=== PATIENT | male | born 2000 | race Caucasian/White ===

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

== ENCOUNTER 2020-01-05 09:09 | Emergency (ER) | payer OTHER, SELFPAY ==
[2019-12-04 13:49] VITALS: BMI 34.0
[2020-01-05 09:10] VITALS: BP 134/88; PULSE 71; RESP 17; TEMP 36.6; O2SAT 96; BMI 34.9
--- NOTE | 2020-01-05 09:28 | ED.VIS.GEN ---
History of Present Illness Chief Complaint: Nausea/Vomiting/Diarrhea Informant: Patient Narrative: Patient is a 19-year-old previously healthy male who presents to the ED for nausea/vomiting and diarrhea. His symptoms have been present over the past week. Denies anybody with similar symptoms. He states that is been having loose stools every hour to 2 hours. He has been vomiting in the morning and sometimes at night. Has any blood or black tarry stools. He gets some epigastric abdominal pain when vomiting but otherwise no significant pain. He did follow-up with his PCP for this. He was placed on medication and has been taking this. He is not sure the name of the medication. He states that it is for an ulcer. He has never had this before in the past. Denies any fevers but has had some chills. Chest pain or shortness of breath. No radiation of pain into his back. States that he feels like he has been starting to get lightheaded and feels dehydrated/not well. He denies any recent travel or antibiotic use. No previous abdominal surgeries. Currently denies having abdominal pain at this time. Past Medical History - Allergies and Home Meds Allergies/Adverse Reactions: Allergies shellfish derived Allergy (Verified 01/05/20 09:10) Itching Primary Care Physician: Maria Elena King MD [Primary Care Provider] - 3-5 Days if not improving Prior records reviewed: Yes Past Medical History: None Surgical History: no surgical history Smoking Status: Current every day smoker Alcohol: None Drugs: None Review of Systems All systems negative except as indicated General: Reports: Chills. Denies: Fever, Sweats Eyes: Denies: Visual changes - bilaterally, Diplopia ENT: Denies: Rhinorrhea, Sore throat Cardiovascular: Denies: Chest pain, Palpitations Respiratory: Denies: Dyspnea, Cough, Dyspnea on exertion Gastrointestinal: Reports: Nausea, Vomiting, Diarrhea. Denies: Abdominal pain, Melena, Hematochezia Genitourinary: Denies: Dysuria, Hematuria, Frequency Musculoskeletal: Denies: Back pain, Extremity Pain Skin: Denies: Rash, Wounds Neurological: Denies: Headache, Weakness, Numbness Physical Exam Vital Signs/Narrative: Vital Signs Temp Pulse Resp BP Pulse Ox 01/05/20 09:10 97.8 F 71 17 134/88 H 96 Inital Vital Signs reviewed: Yes General: Well nourished, Well developed, No Acute Distress Head: Normocephalic, Atraumatic Eyes: Perrl, EOMI ENT: Moist mucous membranes, No rhinorrhea Neck: Supple, Nontender Cardiovascular: Regular rate, Regular rhythm, No murmurs Respiratory: No distress, CTA bilaterally, Chest nontender Abdomen: Soft, Nontender, Nondistended, Normal bowel sounds Back: Nontender, Normal Inspection Extremities: Nontender, No edema Skin: Normal color, No rash Neurological: Alert, Oriented x3, Cranial nerves II-XII grossly intact, Normal Strength, Normal Sensation Psychological: Normal affect, Normal Mood Diagnostic/Tx/Re-eval - Medical Decision Making Patient presents to the emergency department for nausea/vomiting/diarrhea. Upon arrival to the ED is in no acute distress. Vital signs within normal limits. Will start IV fluids and give a dose of Zofran for symptomatic treatment. Will obtain basic lab work. No indication for CT scan at this time as he is not having any abdominal pain whatsoever. Patient is feeling slightly better after Zofran and IV fluids. Does feel comfortable going home. Lab work did not reveal any significant acute abnormality with electrolytes. White blood cell count within normal limits. Liver enzymes are not elevated. Lipase within normal limits. At this time will discharge home in stable condition. He is to follow-up with his PCP. Patient given diet recommendations for the vomiting and diarrhea. He already has Zofran, omeprazole and Carafate prescribed to him he can continue to take this. He understands and is agreeable with this plan. ED Disposition - Plan for ED Patient: Disposition: Home or Assisted Living Diagnosis: Nausea and vomiting, Diarrhea Instructions: ED Viral Gastroenteritis, ED Vomiting and Diarrhea Nonspecific Adult Referrals: Maria Elena King MD [Primary Care Provider] - 3-5 Days if not improving
[2020-01-05] MEDS: Ondansetron 4 MG/2 ML Vial IV (09:46)
[2020-01-05] MEDS: 0.9% Normal Saline 1,000 ML 1000 ML IV (09:46)
[2020-01-05 09:47] VITALS: BP 119/61; PULSE 65; RESP 1; TEMP 36.7; O2SAT 98
[2020-01-05 09:58] LABS: Absolute Lymphocyte Count 1.52 X10^3/uL (0.83-4.51); Absolute Neutrophil Count 5.9 X10^3/uL (2.0-7.7); Basophil# 0.05 X10^3/uL; Basophil% 0.6 % (0-1); Eosinophil# 0.08 X10^3/uL; Hematocrit 46.5 % (40-54); Hemoglobin 15.3 g/dL (13.0-16.5); Lymphocyte # 1.52 X10^3/ul (4.0); Lymphocyte % 18.7 % (19-41); Mean Corp Hgb Conc 32.9 g/dL (32-36); Mean Corpuscular Hgb 29.4 pg (27.0-32.0); Mean Corpuscular Volume 89.3 fL (80-94); Monocyte# 0.54 X10^3/uL; Monocyte% 6.6 % (0-10); NRBC Flagged by Analyzer 0 % (0-5); Neutrophil # 5.92 X10^3/uL (2.7-7.7); Neutrophil % 72.7 % (47-70); Platelet Count 356 K/mm3 (150-450); RBC Distribution Width CV 11.9 % (11.6-14.6); RBC Distribution Width SD 38.5 fl (35.1-43.9); Red Blood Count 5.21 M/mm3 (4.6-6.2); White Blood Count 8.1 K/mm3 (4.4-11.0)
[2020-01-05 10:12] LABS: ALB/GLOB Ratio 1.2 RATIO (0.9-2.4); AST(SGOT) 14 U/L (15-37); Alanine Aminotransfer ALT/SGPT 24 U/L (16-61); Albumin, Serum 4.4 g/dL (3.2-5.0); Alkaline Phosphatase 101 U/L (45-117); Anion Gap 4 (5-15); BUN 10 mg/dL (7-18); BUN/Creat Ratio 8.5 RATIO (10-20); Calcium,Total 9.7 mg/dL (8.5-10.1); Chloride 107 mmol/L (98-107); Creatinine, Serum 1.17 mg/dL (0.70-1.30); EST Glomerular Filtration Rate 85 mL/min (>60); Est Glom Filt Rate - Afr Amer 103 mL/min (>60); Estimated Creatinine Clearance 114.77 ml/min; Globulin 3.7 g/dL (2.2-4.2); Glucose 87 mg/dL (74-106); Lipase 67 U/L (73-393); Potassium 3.9 mmol/L (3.5-5.1); Protein, Total 8.1 g/dL (6.4-8.2); Sodium Level 140 mmol/L (136-145)
[2020-01-05] MEDS: proMETHazine 25 MG/ML Syringe 12.5 MG IV (11:24)
[2020-01-05 11:28] VITALS: BP 118/53; PULSE 79; RESP 18; O2SAT 97
[2020-01-05 11:37] VITALS: BP 118/53; PULSE 79; RESP 18; TEMP 36.7; O2SAT 97
== END 2020-01-05 11:38 | disposition home or self-care (01) ==
PROVIDERS: Emergency Provider Emergency Medicine; PCP Pediatrics
DX: R11.2 Nausea with vomiting, unspecified (principal); R19.7 Diarrhea, unspecified; F17.200 Nicotine dependence, unspecified, uncomplicated
CPT/HCPCS: 80053; 83690; 85025; 96361; 96372; 96374; 96375; 99284; J7030; A4216; J2405

== ENCOUNTER → 2021-01-29 | Outpatient (CLI) | payer OTHER, SELFPAY | END | disposition home or self-care (01) | LOC: LABSPEC 12:51 | PROVIDERS: PCP Pediatrics; Referring Provider Physician Assistant Surgical; Visit Provider Physician Assistant Surgical | DX: J02.9 Acute pharyngitis, unspecified (principal) | CPT/HCPCS: 87635; U0005; U0003 ==

== ENCOUNTER 2021-06-22 14:25 | Outpatient (CLI) | payer OTHER, SELFPAY ==
[2021-06-22 14:26] VITALS: BP 132/84; PULSE 101; RESP 18; TEMP 36.2; O2SAT 97; BMI 31.6
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
--- NOTE | 2021-06-22 15:01 | RAD_ITS ---
History: Infection: Right tibia fibula 2 views: Findings: No fracture or subluxation. No joint or soft tissue abnormality. IMPRESSION: Intact right tibia and fibula. at 1518 Reported and signed by: Dioni Stewart MD Electronically Signed: Dioni Stewart MD at 15:17 EST , RAD/Tibia & Fibula 2 Views
[2021-06-22] MEDS: Doxycycline 100 MG CAPSULE PO (15:08)
[2021-06-22 15:25] VITALS: PULSE 98; RESP 15; O2SAT 97
--- NOTE | 2021-06-23 12:12 | VDLE_ITS ---
Reason For Study: Pain RIGHT GSV is normal. CFV is compressible, spontaneous, phasic, competent and demonstrates normal augmentation. FV is compressible, spontaneous, phasic, competent and demonstrates normal augmentation. POP V is compressible, spontaneous, phasic, competent and demonstrates normal augmentation. T/P Trunk is compressible. PTV is compressible. RT PerV is compressible. Hypoechoic, non vascular structure noted Rt mid, medial calf over area of injury/pain measuring 1.07cm x 5.67cm. Procedure This is a venous duplex using B-mode, color flow and spectral Doppler. Exam performed in department. A preliminary report was called and/or faxed to ED. VL/Venous Duplex US, Unilateral Interpretation Summary There is no evidence of right lower extremity deep vein thrombosis. Right great saphenous vein appears patent and compressible segmentally. Nonvascular right medial calf hypo echoic 1.07 x 5.67 cm structure. Clinical correlation would be appropriate. Ordering Physician: Мария Sherman Referring Physician: Maria Elena King Performed By: Padma Carson, AMBIKA, RVT
== END 2021-06-23 23:59 | disposition home or self-care (01) ==
PROVIDERS: Emergency Provider Emergency Medicine; PCP Pediatrics; Visit Provider Emergency Medicine
DX: L03.115 Cellulitis of right lower limb (principal); F17.220 Nicotine dependence, chewing tobacco, uncomplicated; F17.290 Nicotine dependence, other tobacco product, uncomplicated
CPT/HCPCS: 73590; 93971; 99283

== ENCOUNTER 2023-01-24 17:29 | Emergency (ER) | payer OTHER, SELFPAY ==
[2023-01-24 17:30] VITALS: BP 104/66; PULSE 84; RESP 14; TEMP 36.1; O2SAT 100
[2023-01-24 18:00] VITALS: BP 120/82; PULSE 74; RESP 16; O2SAT 100
[2023-01-24] MEDS: HYDROmorphone 1 MG/ML Syringe IM (18:08)
[2023-01-24] MEDS: Ondansetron 4 MG/2 ML Vial IM (18:09)
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
--- NOTE | 2023-01-24 18:58 | CONS.ORTHO ---
HPI Consult Data Date of Consult: 01/24/23 HPI Narrative HPI Narrative: CHEYANNE ABRAMS, is a 22 M who presents for right clavicle fracture. Per ED doc closed and NVI with no tenting. PFSH Medical History Asthma Right clavicle fracture Smoker Home Medications albuterol sulfate 90 mcg/actuation aerosol inhaler 2 puff inhalation Q4H PRN PRN Sob &/Or Wheezing 07/01/19 [History Last Taken Unknown] omeprazole 40 mg capsule,delayed release 40 mg PO DAILY 01/05/20 [History Last Taken 01/05/20] doxycycline monohydrate 100 mg capsule 100 mg PO BID #20 caps 06/22/21 [Rx Last Taken Unknown] Allergy/AdvReac Type Severity Reaction Status Date / Time shellfish derived Allergy Itching Verified 01/24/23 17:29 Social History Smoking Status: Current every day smoker tobacco type: e-cigarettes Smokeless tobacco user: chewing tobacco alcohol intake: never Vital Signs Vital Signs Vital Signs: 01/24/23 17:30 01/24/23 17:59 01/24/23 18:00 Temperature 97 F L Temperature Source Temporal Pulse Rate 84 74 Respiratory Rate 14 16 Respiratory Effort Normal Non-Labored Respiratory Depth Normal Respiratory Pattern Normal Blood Pressure 104/66 120/82 H Blood Pressure Mean 78 94 Pulse Ox 100 100 Oxygen Delivery Method Room Air Room Air Room Air Assessment & Plan Assessment/Plan (1) Right clavicle fracture: PLAN: 22 M R clavicle fracture, sling and FU on thursday.
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
== END 2023-01-24 19:23 | disposition home or self-care (01) ==
PROVIDERS: Emergency Provider Emergency Medicine; PCP Family Medicine; Visit Provider Emergency Medicine
DX: S42.021A Displaced fracture of shaft of right clavicle, initial encounter for closed fracture (principal); F17.290 Nicotine dependence, other tobacco product, uncomplicated; X58.XXXA Exposure to other specified factors, initial encounter
CPT/HCPCS: 73000; 96372; 99283; J2405

== ENCOUNTER 2023-01-28 10:52 | Day surgery (SDC) | payer OTHER, SELFPAY ==
[2023-01-28] VITALS (8 sets, daily range): BP systolic 107–124; BP diastolic 67–85; PULSE 63–90; RESP 12–18; TEMP 36.3–36.8; O2SAT 96–100; BMI 23.2
[2023-01-28] MEDS: Lactated Ringers 1,000 ML 15 ML IV (11:23)
--- NOTE | 2023-01-28 11:25 | RAD_ITS ---
EXAM: XR RIGHT CLAVICLE COMPLETE, 2 OR MORE VIEWS CLINICAL INDICATION: FX TECHNIQUE: Frontal and lordotic views of the right clavicle. COMPARISON: No relevant prior studies available. FINDINGS: BONES/JOINTS: Single image was obtained intraoperatively which shows orthopedic plate and screws across a clinical fracture. Preservation of the joint space. No sclerotic or destructive changes observed. SOFT TISSUES: Unremarkable. No soft tissue swelling or gas. No radiopaque foreign body. RAD/Clavicle IMPRESSION: ORIF right clavicle fracture. Electronically Signed: Herminio Powers MD at 17:09 EDT ,
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
[2023-01-28] MEDS: Cefazolin 2 GM in 0.9% Normal Saline (100mL Bag) 100 ML IV (12:30)
[2023-01-28] MEDS: Bupivacaine 0.25% 30 ML Vial (13:00)
--- NOTE | 2023-01-28 14:11 | OP.PCM_ITS ---
Problems Associated Problem List Diagnoses (1) Right clavicle fracture: Report of Operation Date of Procedure: 01/28/23 Pre-Operative Diagnosis: R clavicle fracture Post-Operative Diagnosis: same Surgery/Procedure Performed:: right clavicle open reduction internal fixation Surgeon: Saul Morales Type of Anesthesia: General and Local Anesthesiologist: Obey Ferreira Estimated Blood Loss (mL): 40 Description of Procedure: Patient brought to the operating room theater. Placed supine on the table. Pillow under the legs SCDs on the legs all bony prominences padded. General anesthesia induced. 2 g IV Ancef ministered prior to the start of the procedure. Patient sat up at a 45 degree angle. Trimano arm leary used on the patient's right side. Clavicle prepped and draped in the usual sterile fashion allowing over 3 minutes drying time prior to draping. Preoperative timeout performed to confirm the site patient and the surgery. Began by infiltrating 10 cc of quarter percent bupivacaine around the incision site. Made a standard incision centered of the superior aspect of the subcut aneous border of the clavicle. Carried dissection down through skin and subcutaneous tissue achieved meticulous hemostasis. Incised the fascia and platysma in line with the skin incision. Identified the fracture site. Dissected down onto the superior aspect of the clavicle on both sides of fracture. There is a about half an inch length of comminution into 2 fragments in the mid aspect of the clavicle. I used these to ballistics teacher the length. The most superior aspect of the clavicle was intact as well, so I could also ballistics teacher the length and schaefer this in. I removed any interposed fracture periosteum and hematoma. Thoroughly irrigated this. Used pointed reduction forceps as well as alligator clamps to manipulate the fracture back into proper alignment length and rotation. I selected a Synthes precontoured locking plate placed superiorly clamped this onto the superior aspect of the clavicle. Took intraoperative radiographs to confirm plate placement as well as fracture alignment. I used the 2.7 mm low-profile plate. I drilled using a 2.0 mm drill and placed 4 fully threaded locking screws 2.7 mm in diameter on both sides of the fracture site to increase the working length as much as possible. The comminuted segment I left this as this was bridge plating technique. Final radiographs were taken and saved onto the system to ensure the screws were of adequate length. Fracture is stable. Wounds thoroughly irrigated. I did use a #1 Vicryl suture to close the fascia overlying the area of comminution to ensure that the segment was appropriately reduced as well but this was held nicely in place by the reduction itself and the plate. Rest of the fascia layer was closed with running #1 Vicryl suture subcutaneous tissue with 2-0 Vicryl suture and skin with 3-0 Monocryl. Skin cleaned with wet dry dressing followed application of Steri-Strips and Mepilex border dressing. Patient's upper extremity placed into a sling. The patient was woken up from the general anesthetic transferred off the operating table taken postanesthetic care unit in stable condition. All sponge needle instrument counts were correct no complications. cpt 35181? Complications none Admit VTE Documentation VTE Present on Admission: No VTE Mechan Device Prophylaxis: SCD's VTE Pharm Prophylaxis ordered?: No Reason prophylaxis not ordered:: Treatment Not Indicated Procedures Musculoskeletal 20xxx-29xxx: Other Procedure See Report
--- NOTE | 2023-01-28 14:20 | DCINST_ITS ---
Discharge Instructions Diet Discharge Diet: No restrictions Activity Ice area for (Minutes): 10 Weight Bearing Status: No weight bearing Lifting Restrictions: ok for pendulum exercises Dressing / Incision Call your doctor if your incision/area has: Continuous Slow Oozing, Sudden Increased Bleeding, Increased Pain/ Swelling, Increased Redness, Foul Smelling Discharge and Swelling at the incision site Remove Dressing in: leave in place till F/U Follow Up Care Please Follow Up With: Saul Morales MD When: 2 days Test Results: Test results from this visit will be discussed in further detail at your follow- up appointment, if applicable. Discharge Plan Admission Attending Provider: Saul Morales Primary Care Provider: Garcia Sifuentes Discharge Orders/Prescriptions Prescriptions: New oxycodone-acetaminophen [Endocet] 5-325 mg tablet 1 tab PO Q4H MDD 6 PRN (Reason: pain) 5 Days Qty: 20 0RF No Action albuterol sulfate 90 mcg/actuation HFA aerosol inhaler 2 puff INHALATION Q4H PRN PRN (Reason: Sob &/Or Wheezing) Patient Comments: INHALE 2 PUFFS INTO THE LUNGS EVERY 4 HOURS NEEDED FOR WHEEZING, SHORTNESS OF BREATH OR COUGH omeprazole 40 MG capsule,delayed release(DR/EC) 40 mg PO DAILY oxycodone-acetaminophen [Endocet] 5-325 mg tablet 1 tab PO Q6H 3 Days Qty: 12 0RF Referrals / Follow Up: Garcia Sifuentes DO [Primary Care Provider] - Saul Morales MD [Med Staff - Active Staff] - Disposition Disposition (needs filled in before D/C Order can be placed): Home, Self Care
[2023-01-28] MEDS: HYDROcodone Bitartrate/Apap 5/325 Tablet PO (15:27)
== END 2023-01-28 15:54 | disposition home or self-care (01) ==
LOC: SDC 10:56 → AC 10:58
PROVIDERS: PCP Family Medicine; Referring Provider Orthopaedic Surgery Sports Medicine; Visit Provider Orthopaedic Surgery Sports Medicine
PROC: (CPT 23515; principal; 2023-01-28 12:05)
DX: S42.001A Fracture of unspecified part of right clavicle, initial encounter for closed fracture (principal); F17.290 Nicotine dependence, other tobacco product, uncomplicated; K21.9 Gastro-esophageal reflux disease without esophagitis; J45.909 Unspecified asthma, uncomplicated; Z79.899 Other long term (current) drug therapy; X58.XXXA Exposure to other specified factors, initial encounter
CPT/HCPCS: 23515; 00450; 73000; 76000; C1713; J7120; J2405

== ENCOUNTER 2024-07-16 19:57 | Emergency (ER) | payer OTHER, SELFPAY ==
[2024-07-16 19:58] VITALS: BP 139/72; PULSE 106; RESP 15; TEMP 35.8; O2SAT 99
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
[2024-07-16] MEDS: HYDROcodone Bitartrate/Apap 5/325 Tablet PO (20:24)
--- NOTE | 2024-07-16 20:30 | RAD_ITS ---
PROCEDURE: KNEE 3 VIEWS REASON FOR EXAM: Pain/trauma TECHNIQUE: 2 view(s) of the left knee COMPARISON: None. FINDINGS: Large left knee effusion detected. Fragmentation at the tibial tubercle as well as inferior patella which appear to be remote. No definite fracture detected. Derangement not excluded RAD/Knee 3 Views IMPRESSION: Large left knee effusion following trauma. No acute fracture detected. Chroni c changes seen along the inferior patella as well as tibial tubercle. If concern for derangement, consider MRI. Reading Location: [id number]
== END 2024-07-16 21:37 | disposition home or self-care (01) ==
PROVIDERS: Emergency Provider Emergency Medicine; PCP Family Medicine; Visit Provider Emergency Medicine
DX: S83.92XA Sprain of unspecified site of left knee, initial encounter (principal); R03.0 Elevated blood-pressure reading, without diagnosis of hypertension; F17.290 Nicotine dependence, other tobacco product, uncomplicated; X58.XXXA Exposure to other specified factors, initial encounter; Z79.51 Long term (current) use of inhaled steroids
CPT/HCPCS: 73562; 99284

== ENCOUNTER → 2024-08-01 | Outpatient (CLI) | payer OTHER, SELFPAY ==
--- NOTE | 2024-08-01 19:14 | MRI_ITS ---
PROCEDURE: MRI left knee without IV contrast REASON FOR EXAM: Pain TECHNIQUE: Multisequence multiplanar MR images of the left knee were obtained without the administration of intravenous contrast. COMPARISON: None. FINDINGS Medial meniscus is intact. Possible small vertical longitudinal tear at the posterior horn of the lateral meniscus near the insertion of the meniscal femoral ligament. Remaining portions of the lateral meniscus are intact. Full-thickness tear of the mid anterior cruciate ligament. Intact posterior cruciate ligament. Grade 2 sprain of the medial collateral ligament. Lateral collateral ligamentous complex is intact. Extensor mechanism is intact. Ossicles at the tibial tubercle and along the proximal patellar tendon likely related to chronic traction injuries. Near full-thickness oblique fracture along the medial patellar facet. Trochlear cartilage is intact. Medial and lateral compartment cartilage is intact. Moderate joint effusion. Pivot-shift bone marrow contusions along the peripheral aspects of the medial and lateral femoral condyles as well as the medial and lateral tibial condyles. Mild osseous contusion at the anteromedial tibial condyle also noted. Tiny nondisplaced osseous and chondral fracture at the posterior aspect of the lateral tibial plateau. Moderate scattered soft tissue edema throughout the musculature and subcutaneous tissues. MRI/Lower Ext Joint Only (Routine) IMPRESSION: 1. Ruptured anterior cruciate ligament. 2. Grade 2 sprain of the medial collateral ligament. 3. Pivot-shift bone marrow contusions in the distal femur and proximal tibia. 4. Moderate joint effusion. 5. Suspected small vertical longitudinal tear of the posterior horn of the late ral meniscus. 6. Minimal chondral abnormalities as mentioned above. Reading Location: [facility]
== END | disposition home or self-care (01) ==
LOC: MRI 14:09
PROVIDERS: PCP Family Medicine; Referring Provider Nurse Practitioner Family; Visit Provider Nurse Practitioner Family
DX: M23.92 Unspecified internal derangement of left knee (principal); S83.92XA Sprain of unspecified site of left knee, initial encounter
CPT/HCPCS: 73721

== ENCOUNTER 2024-08-24 12:14 | Day surgery (SDC) | payer OTHER, SELFPAY ==
[2024-08-24] VITALS (10 sets, daily range): BP systolic 107–120; BP diastolic 67–78; PULSE 80–103; RESP 14–18; TEMP 36.1–36.7; O2SAT 94–97; BMI 29.7
--- NOTE | 2024-08-24 12:22 | PCM.PRE.AN2 ---
ASA Classification* ASA Classification ASA Classification: 2 Assessment & Plan Anesthesia* Anesthesia Assessment Anesthesia Assessment: Discussed sedation and/or anesthesia options, risks, benefits, and alternatives with patient/parents/legal guardian/POA. Questions invited. The patient/parents/legal guardian/POA seems to understand and agrees to proceed with anesthesia plan. Reviewed the physical assessment, medical history, allergy history and patient home medications list prior to surgery/procedure/anesthetic and documented any changes. Performed airway and anesthesia risk assessments. Anesthesia Type Anesthesia Type: General and Block Anesthesia Focused Assessment* Airway Assessment Mouth opens: >3 cm Mallampati Score: II Focused Labs Anesthesia Preop lab: CBC WBC 8.1 K/mm3 (4.4-11.0) 01/05/20 09:42 01/05/20 RBC 5.21 M/mm3 (4.6-6.2) 01/05/20 09:42 01/05/20 Hgb 15.3 g/dL (13.0-16.5) 01/05/20 09:42 01/05/20 Hct 46.5 % (40-54) 01/05/20 09:42 01/05/20 Plt Count 356 K/mm3 (150-450) 01/05/20 09:42 01/05/20 CHEMISTRY Potassium 3.9 mmol/L (3.5-5.1) 01/05/20 09:42 01/05/20 Sodium 140 mmol/L (136-145) 01/05/20 09:42 01/05/20 BUN 10 mg/dL (7-18) 01/05/20 09:42 01/05/20 Creatinine 1.17 mg/dL (0.70-1.30) 01/05/20 09:42 01/05/20 Glucose 87 mg/dL (74-106) 01/05/20 09:42 01/05/20 COAG Pre-Assessment Diagnosis/Proposed Procedure Planned Operative Procedure(s): LEFT KNEE ARTHROSCOPY QUAD TENDON REPAIR ACL RECONSTRUCTION LATERAL MENISCUS REPAIR Anesthesia History 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 When Was Last Pacemaker Check QUESTION #4 FULL TEXT: You/Your Family Experience fever (hyperthermia) with Anesthesia Last Oral Intake Last Oral intake: Last Oral Intake NPO since Meds taken in AM with sips of water? Meds patient instructed to take am of surgery PONV PONV - real estate loan processor: PONV - real estate loan processor Female No 08/10/24 08:16 HX of Motion Sickness No 08/10/24 08:16 HX of N/V After Surgery No 08/10/24 08:16 Non-Smoker No 08/10/24 08:16 Duration of Surgery greater Yes 08/10/24 08:16 than 60 minutes Number of Risk Factors 1 08/10/24 08:16 PONV Score Low Risk 08/10/24 08:16 Height & Weight Height & Weight: Anesthesia: Height & Weight Height 6 ft 1 in 08/03/24 13:25 Respiratory Assessment Respiratory Assessment - real estate loan processor: Respiratory Tract Infection Hx - real estate loan processor Hx Respiratory Tract Infection No 08/10/24 08:16 STOP Sleep Apnea STOP Sleep Apnea - real estate loan processor: STOP Sleep Apnea - real estate loan processor Hx Hypertension No 08/10/24 08:16 Hx Sleep Apnea No 08/10/24 08:16 CPAP BIPAP Do you snore loudly (louder Yes 08/10/24 08:16 than talking or can be heard Do you often feel tired/ No 08/10/24 08:16 fatigued/ sleepy during daytime? Has anyone observed you stop No 08/10/24 08:16 breathing during sleep? STOP Results Negative 08/10/24 08:16 QUESTION #5 FULL TEXT : Do you snore loudly (louder than talking or can be heard through closed doors)? 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 Specify any problems Hx of Preganancy in last 3 N/A 08/10/24 08:16 Months Nurse Filling Out Transfusion DSCHRIBER 08/10/24 08:16 & Questions: Date: 08/10/24 08/10/24 08:16 Time: 08:18 08/10/24 08:16 Patient unable to answer at this time (ie. confused, unrespo /Reproduction History /Reproductive History - real estate loan processor: /Reproductive Hx- real estate loan processor Hx Now No 08/10/24 08:16 Gestational Age (in weeks): EDC: Hx Hx Para Hx Section SAB No 08/10/24 08:16 Active Medications Active Medications: Current Medications Generic Name Dose Route Start Last Admin Trade Name Freq PRN Reason Stop Dose Admin Cefazolin Sodium 2 gm/ N/A 20 mls @ 400 mls/hr 08/24/24 14:00 IV 08/24/24 14:02 PREOP ONE PFSH Medical History Anxiety Marijuana use Alcohol use Restless legs History of edema Acute lateral meniscus tear of left knee MCL sprain of left knee Left ACL tear History of ulceration Gastric reflux Right clavicle fracture Smoker Asthma Home Medications ?Medication ?Instructions ?Recorded ?Last Taken ?Type albuterol sulfate 90 mcg/actuation 2 puff inhalation Q4H PRN PRN Sob 07/01/19 Unknown History aerosol inhaler &/Or Wheezing omeprazole 40 mg capsule,delayed 40 mg PO DAILY 01/05/20 01/27/23 History release ibuprofen 800 mg tablet 800 mg PO Q8H PRN pain #90 tabs 07/22/24 Unknown Rx Allergy/AdvReac Type Severity Reaction Status Date / Time cat dander Allergy Intermediate Itching Verified 08/10/24 08:14 dog dander Allergy Intermediate Itching Verified 08/10/24 08:14 shellfish derived Allergy Itching Verified 08/10/24 08:12 Seasonal Allergies: Uncoded AdvReac Intermediate ITCHING Verified 08/10/24 08:14 (environmental) Surgical History S/P ORIF (open reduction internal fixation) fracture Social History Smoking Status: Current every day smoker tobacco type: e-cigarettes Smokeless tobacco user: chewing tobacco alcohol intake: never Review of Systems (Anesthesia) ROS Narrative System reviewed and no additional complaints, except as documented.
--- NOTE | 2024-08-24 14:06 | HP.PCM_ITS ---
HPI - General HPI Narrative CHEYANNE ABRAMS, is a 24 M who presents for left knee arthroscopy, quadriceps tendon anterior cruciate ligament reconstruction, lateral meniscus repair. no change to h and p. narcotic counselling, rab, post op instructions discussed. left knee marked. block ok. crutches and brace after. will proceed. MR#: [id number] Acct: [id number] Name: CHEYANNE ABRAMS Rep #: [id number] : 2000 Provider: Dr. Saul Morales MD Age/Sex: 24/M Location: [facility] – [place].JESIKA Status: Signed with Addenda ADDENDUM by Dr. Saul Morales MD on 08/03/24 at 1348 Assessment and Plan Assessment and Plan (1) Left ACL tear: Status: Acute Plan: I gave the patient a brace to ROM unlocked 0 to 90 degrees for the MCL sprain. (2) MCL sprain of left knee: Status: Acute (3) Acute lateral meniscus tear of left knee: Status: Acute 08/03/24 1348 <Electronically signed by Saul Morales MD> Date Saul Morales MD cc: ~* Signed Intake Vital Signs 08/02/2513:19 08/03/2512:25 Height 6 ft 1 in 6 ft 1 in Intake Visit Reasons: LEFT KNEE Chief Complaint: Left knee Accompanied by: Self Is patient in pain?: Yes (Walking) Pain scale (1-10): 7 Allergies shellfish derived Allergy (Verified 08/03/24 13:26) Itching Medications ?Medication ?Instructions ?Recorded ?Confirmed ?Type albuterol sulfate 90 mcg/actuation 2 puff inhalation Q4H PRN PRN Sob 08/03/24 History aerosol inhaler &/Or Wheezing omeprazole 40 mg capsule,delayed 40 mg PO DAILY 01/05/20 08/03/24 History release ibuprofen 800 mg tablet 800 mg PO Q8H PRN pain #90 tabs 07/22/24 08/03/24 Rx Have you fallen in the past year?: Yes PFSH Medical History Acute lateral meniscus tear of left knee MCL sprain of left knee Left ACL tear History of ulceration Gastric reflux Right clavicle fracture Smoker Asthma Surgical History S/P ORIF (open reduction internal fixation) fracture Social History Smoking Status: Current every day smoker tobacco type: e-cigarettes Smokeless tobacco user: chewing tobacco alcohol intake: never HPI LEFT KNEE Details: This documentation accurately reflects the service provided and the decisions made by me, Dr. Saul Morales MD 08/03/24 1008. Part of today?s visit was documented by [ ], acting as scribe. CHEYANNE ABRAMS is a 24 year old M here today for L knee injury, ACL, MCL, lateral meniscus tear. Patient was jumping down from a truck. [place] a pop. Immediate instability and swelling of the knee. 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 per referral doi: 07/16/24. He states that he was in the rogers of his truck cleaning and went to jump leading with his left leg, when he jumped down he lost his balance and his knee went to the side and his body went the opposite direction. When the injury occurred he did feel popping in the knee with immediate pain. Supplemental Info [facility] [address] [place] [address] Lower Ext Joint Only (Routine) MR#: [id number] Acct: [id number] Name: CHEYANNE ABRAMS Rep #: [id number] : 2000 M 24 From: Franklin Lira DO PCP: Dr. Garcia Sifuentes, DO Status: REG CLI Study: Lower Ext Joint Only (Routine) Date of Exam: 08/01/24 Exam# [id number] Ordering Dr: Tracee Powell [employer] PROCEDURE: MRI left knee without IV contrast REASON FOR EXAM: Pain TECHNIQUE: Multisequence multiplanar MR images of the left knee were obtained without the administration of intravenous contrast. COMPARISON: None. FINDINGS Medial meniscus is intact. Possible small vertical longitudinal tear at the posterior horn of the lateral meniscus near the insertion of the meniscal femoral ligament. Remaining portions of the lateral meniscus are intact. Full-thickness tear of the mid anterior cruciate ligament. Intact posterior cruciate ligament. Grade 2 sprain of the medial collateral ligament. Lateral collateral ligamentous complex is intact. Extensor mechanism is intact. Ossicles at the tibial tubercle and along the proximal patellar tendon likely related to chronic traction injuries. Near full-thickness oblique fracture along the medial patellar facet. Trochlear cartilage is intact. Medial and lateral compartment cartilage is intact. Moderate joint effusion. Pivot-shift bone marrow contusions along the peripheral aspects of the medial and lateral femoral condyles as well as the medial and lateral tibial condyles. Mild osseous contusion at the anteromedial tibial condyle also noted. Tiny nondisplaced osseous and chondral fracture at the posterior aspect of the lateral tibial plateau. Moderate scattered soft tissue edema throughout the musculature and subcutaneous tissues. MRI/Lower Ext Joint Only (Routine) IMPRESSION: 1. Ruptured anterior cruciate ligament. 2. Grade 2 sprain of the medial collateral ligament. 3. Pivot-shift bone marrow contusions in the distal femur and proximal tibia. 4. Moderate joint effusion. 5. Suspected small vertical longitudinal tear of the posterior horn of the lateral meniscus. 6. Minimal chondral abnormalities as mentioned above. Reading Location: [facility] I independently reviewed the imaging. Concur with radiologist report. Normal Coding Level of Care Code Off vis,est,level 3 Diagnoses Left ACL tear S83.512A MCL sprain of left knee S83.412A Acute lateral meniscus tear of left knee S83.282A Assessment and Plan Assessment and Plan (1) Left ACL tear: Status: Acute Plan: 24 old man with a left knee ACL tear lateral meniscus tear bone bruise pattern as well as a grade 2 MCL sprain with no laxity in full extension. Discussed the diagnosis prognosis different treatment options. 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 He does not play sports I do not think he would be at high risk and without a grade 3 pivot shift or participation in high risk activities like soccer I will not add although I did consider a lateral extra-articular tenodesis. Plan to do a quadriceps tendon autograft although we did discuss other options. Graft retear rate of 5 to 7%. I will do this with an internal brace device and suspensory button fixation. Typically 6 weeks on crutches with the brace postoperatively given the need for meniscus repair as well as the MCL sprain. 9 months before g oing back to sports or pivoting or twisting activities the patient understands no further questions and wishes to proceed with left knee arthroscopy, quadriceps tendon anterior cruciate ligament reconstruction, lateral meniscus repair. Pros and cons risks and benefits were discussed with the patient including but not limited to infection, pain, stiffness, bleeding, damage to surrounding structures, neurovascular injury, recurrence or retear, failure or wear of hardware or fixation, instability, fracture, deep vein thrombosis and pulmonary embolism, anesthetic risks, , patient dissatisfaction, need for further surgery and other risks. Patient understood and wished to proceed with surgery, and signed the informed consent documentation. (2) MCL sprain of left knee: Status: Acute (3) Acute lateral meniscus tear of left knee: Status: Acute Clinical Quality Measures Falls Risk Screening/Assistive Devices Have you fallen in the past year?: Yes Ortho Exam General General: Yes no acute distress Neurologic: Yes alert and Yes oriented x3 Psychologic: Yes reasonable and appropriate Right Knee Patella Translation: 2 Left Knee Skin/Wound: Yes CDI, No ecchymosis, No erythema and Yes swelling 1+: Effusion Examination: Yes med jt line tenderness, Yes Lat jt line tenderness, No Crepitus, Yes Pain with flexion and Yes Masoud's Test Quad Atrophy: No Stability: NML: Posterior Drawer, NML: Valgus 0, NML: Varus 0 and NML: Varus 30, 1+: Anterior Drawer and 1+: Essence and 2+: Valgus 30 Apprehension with Lateral Translation: No Patella Translation: 2 Patellar Tilt Normal: Yes Patella Grind: No KNEE: nvi, rom 0-120. [facility] Medical History Anxiety Marijuana use Alcohol use Restless legs History of edema Acute lateral meniscus tear of left knee MCL sprain of left knee Left ACL tear History of ulceration Gastric reflux Right clavicle fracture Smoker Asthma Home Medications ?Medication ?Instructions ?Recorded ?Last Taken ?Type albuterol sulfate 90 mcg/actuation 2 puff inhalation Q 4H PRN PRN Sob 07/01/19 Unknown History aerosol inhaler &/Or Wheezing omeprazole 40 mg capsule,delayed 40 mg PO DAILY 01/27/23 History release ibuprofen 800 mg tablet 800 mg PO Q8H PRN pain #90 t abs 07/22/24 Unknown Rx Allergy/AdvReac Type Severity Reaction Status Date / Time cat dander Allergy Intermediate Itching Verified 08/24/24 12:50 dog dander Allergy Intermediate Itching Verified 08/24/24 12:50 hydrocodone Allergy Intermediate Itching Verified 08/24/24 12:50 shellfish derived Allergy Itching Verified 08/24/24 12:50 Seasonal Allergies: Uncoded AdvReac Intermediate ITCHING Verified 08/24/24 12:50 (environmental) Surgical History S/P ORIF (open reduction internal fixation) fracture Social History Smoking Status: Current every day smoker tobacco type: e-cigarettes Smokeless tobacco user: chewing tobacco alcohol intake: never Vital Signs Vital Signs Vital Signs: 08/24/24 12:51 08/24/24 12:51 Temperature 98.1 F Temperature Source Temporal Pulse Rate 84 Respiratory Rate 18 Respiratory Pattern Normal Blood Pressure 116/78 Blood Pressure Mean 90 Blood Pressure Source Monitor Blood Pressure Position Sitting Blood Pressure Location Right Arm Pulse Ox 97 Oxygen Delivery Method Room Air Weight Weight: 231 lb 7.766 oz Body Mass Index (BMI) 29.7
[2024-08-24] MEDS: Cefazolin 2 GM in Syringe IV (14:26)
[2024-08-24] MEDS: Epinephrine (1 mg/ml) 1 MG/ML VIAL (14:44)
--- NOTE | 2024-08-24 16:20 | OP.PCM_ITS ---
Problems Associated Problem List Diagnoses (1) Acute lateral meniscus tear of left knee: (2) Left ACL tear: Operative Report (Standard) Operative Information Date of Procedure: 08/24/24 Pre-Operative Diagnosis: Left knee ACL tear and lateral meniscus tear Post-Operative Diagnosis: Same Surgery/Procedure Performed: Left knee arthroscopy ACL reconstruction quadriceps tendon autograft and repair lateral meniscus rodbuster: Yes Analytical Tech: rajendra Tasks completed by first dyer: Retracting Additional graphic design assistant?: No Type of Anesthesia: Block,Regional and General RN Documented Start/Stop Times: Operation Date: 08/24/24 14:00 Case Time Into Pre-Op 08/24/24 12:29 Anesthesia Start 08/24/24 14:26 Into Room 08/24/24 14:26 Procedure Start 08/24/24 14:44 Procedure Start Time: 14:44 Select all DRAINS/GRAFTS/IMPLANTS that apply: Implanted device Implanted device details: Arthrex suspensory button fixation with the 4.75 mm swivel lock and all inside Arthrex fiber stitch implants Estimated Blood Loss: 50 Specimen collected: No Surgical Findings: As above
--- NOTE | 2024-08-24 16:20 | PCM.OPRPT ---
Problems Associated Problem List Diagnoses (1) Acute lateral meniscus tear of left knee: (2) Left ACL tear: Operative Report (Standard) Operative Information Date of Procedure: 08/24/24 Pre-Operative Diagnosis: Left knee ACL tear and lateral meniscus tear Post-Operative Diagnosis: Same Surgery/Procedure Performed: Left knee arthroscopy ACL reconstruction quadriceps tendon autograft and repair lateral meniscus campaign assistant: Yes Record Tester: rajendra Tasks completed by first aid trainer: Retracting Additional research assistant?: No Type of Anesthesia: Block,Regional and General RN Documented Start/Stop Times: Operation Date: 08/24/24 14:00 Case Time Into Pre-Op 08/24/24 12:29 Anesthesia Start 08/24/24 14:26 Into Room 08/24/24 14:26 Procedure Start 08/24/24 14:44 Procedure Start Time: 14:44 Procedure Stop Time: 16:16 Select all DRAINS/GRAFTS/IMPLANTS that apply: Implanted device Implanted device details: Arthrex suspensory button fixation with the 4.75 mm swivel lock and all inside Arthrex fiber stitch implants Estimated Blood Loss: 50 Specimen collected: No Description of surgery: Patient brought to the operating room theater. Placed supine on the table. 2 g IV Ancef administered prior to the start of the case. General anesthesia induced. All bony prominences padded. SCD on the nonoperative leg. Tourniquet applied to the left thigh appropriately padded. Stress positioner to the left lower extremity. Lower extremity prepped and draped in the usual sterile fashion allowing over 3 minutes drying time prior to draping. Preoperative timeout performed to performed to confirm the site patient the surgery. Examination under anesthetic revealed full range of motion no hyperextension 2+ pivot shift and 2B Essence. Began by elevating the limb and inflating the tourniquet to 250 mmHg. Use standard anterolateral and anteromedial arthroscopy portals. Did a full diagnostic arthroscopy. Cartilage all 3 compartments was normal. Medial and lateral meniscus stable and solid to probing. Lateral meniscus had smell vertical longitudinal tear uidner surface near the posterior horn. Used a rasp to stimulate healing. Used 2 arthrex fiber stitch all inside implants vertical mattress to fix the tear. Stable afterwards. Normal roots. PCL appeared normal. There was an empty lateral wall sign with a full-thickness proximal ACL tear. Removed and debrided the remaining ACL stump. Identified the back wall. Arthroscope was withdrawn. Next I made a transverse incision at the distal quadriceps tendon insertion carried the dissection down through skin and subcutaneous tissue achieved meticulous hemostasis. Identified the vastus medialis stayed lateral to this. I harvested a 6.5 cm long by 9 mm central strip of the quadriceps tendon staying extra-articular using the Arthrex quad pro harvesting device. I loosely opposed to the 2 sides of the quadriceps using a 1 Vicryl suture wet sponge placed in the wound. Graft taken to the back table. I used the Arthrex all inside with the button system using the fiber tape in the typical fashion with the locking sutures and then buried the stitch on both ends. Added fiber tape for internal brace. This measured 11 mm on the femur and 9 mm on the tibia. Graft was placed on tension with covered with a wet sponge. I then turned my attention back to the knee arthroscope was then placed. The passport cannula placed in the medial portal. I then drilled a 3 cm long tunnel retrograde low and posterior on the femoral side. Ensured a good backwall. Ensured good lateral cortex still intact - the total length was 5 cm and I drilled retrograde at 11 mm to 3 cm long tunnel. I then performed the same operation on the tibial side with retrograde drilling the total length of the tunnel was 4.5 cm so I drilled retrograde 3 cm length with 9 mm diameter on the tibial side all bone dust was cleared away. I passed the sutures passing sutures through both tunnels and through the passport cannula. I then passed the femoral side sutures with the tape coming back down through the tibial side with the tensioning sutures through the tibial tunnel as well. Button was flipped graft tensioned 2.5 cm into the femoral tunnel button affixed to the tibial tight rope adjustable button loop system and the sutures again tensioned down on both sides sequential tension was performed on both sides. Prior to fixing the tibial button on the tibial side I did 15 cycles of flexion and extension of the knee. Graft was fixated in full extension and ensure no impingement in extension. I did a little bit of lateral notchplasty as well before passing the graft. Graft was stable and solid eliminating the Essence and pivot shift for full range of motion. I then affixed without tension the internal brace to a Arthrex 4.75 mm swivel lock anchor just distal to the tibial tunnel. Tourniquet let down meticulous hemostasis achieved wound thoroughly irrigated the subcutaneous tissue closed with 2-0 Vicryl suture and skin with 3-0 Monocryl. Skin cleaned with wet dry dressing followed application of Steri-Strips Adaptic 4 x 4 gauze ABD dressing and Kevin wrap . Patient woken up from the general anesthetic transferred off the operating table taken postanesthetic care unit in stable condition. All sponge needle instrument counts were correct patient to be on crutches for 2 weeks time follow-up in the office in 2 days and gentle range of motion and partial weightbearing, brace in full extension and [place]. cpt 99346, [id number] Surgical Findings: As above Complications Complications: No Admit VTE Documentation VTE Present on Admission: No VTE Mechan Device Prophylaxis: SCD's VTE Pharm Prophylaxis ordered?: Yes
--- NOTE | 2024-08-24 16:28 | DCINST_ITS ---
Discharge Instructions Diet Discharge Diet: No restrictions Activity Discharge Activity: Use Crutches Ice area for (Minutes): 10 Weight Bearing Status: Partial weight bearing Lifting Restrictions: use brace in full extension (straight) while walking Keep extremity elevated above heart level: Operative Extremity Dressing / Incision Call your doctor if your incision/area has: Continuous Slow Oozing, Sudden Increased Bleeding, Increased Pain/ Swelling, Increased Redness, Foul Smelling Discharge and Swelling at the incision site Call your doctor if you observe: Fever of 101 or Higher, Coldness, Increased Pain and Numbness or Tingling Remove Dressing in: leave in place till F/U Cleanse incision/area with: Do not get Incision Wet Follow Up Care Please Follow Up With: Saul Morales MD When: within 2 weeks Test Results: Test results from this visit will be discussed in further detail at your follow- up appointment, if applicable. Discharge Plan Admission Attending Provider: Saul Morales Primary Care Provider: Garcia Sifuentes Instructions Patient Instructions: After Knee Arthroscopy Print Language: Greenlandic Discharge Orders/Prescriptions Prescriptions: New tramadol 50 mg tablet 50 mg PO Q8H MDD 3 PRN (Reason: pain) 3 Days Qty: 14 0RF aspirin 81 mg capsule 81 mg PO BID MDD 2 30 Days Qty: 60 0RF No Action albuterol sulfate 90 mcg/actuation HFA aerosol inhaler 2 puff INHALATION Q4H PRN PRN (Reason: Sob &/Or Wheezing) Patient Comments: INHALE 2 PUFFS INTO THE LUNGS EVERY 4 HOURS NEEDED FOR WHEEZING, SHORTNESS OF BREATH OR COUGH ibuprofen 800 mg tablet 800 mg PO Q8H PRN (Reason: pain) Qty: 90 0RF Rx Instructions: Take medication every 8 hours for the next 5 days, then decrease to as needed use for Pain, stiffness or swelling. omeprazole 40 MG capsule,delayed release(DR/EC) 40 mg PO DAILY Referrals / Follow Up: Garcia Sifuentes DO [Primary Care Provider] - Saul Morales MD [Med Staff - Active Staff] - Disposition Disposition (needs filled in before D/C Order can be placed): Home, Self Care
--- NOTE | 2024-08-24 16:33 | PCM.POST.ANE ---
Anesthesia: Postop Eval I Current Vital Signs Temperature: 97.9 F Pulse Rate: 103 Blood Pressure: 107/67 Respiratory Rate: 18 Pulse Ox: 94 Assessment Airway patent: Yes Spontaneous unlabored respirations: Yes nausea: No Vomiting: No Anesthesia Complication: No Fluid Hydration Crystalloid volume administer (ml): 1,600 Total IV fluid infused: 1,600 Progress Note Anesthesia document: Postop Eval 1 completed: Yes
--- NOTE | 2024-08-24 17:16 | POSTOPAN2_ITS ---
Anesthesia Postop Eval I Sum Postop Eval Completion status Anesthesia document: Postop Eval 1 completed: Yes Anesthesia Postop Eval I Summary Anesthesia Postop Eval I Summary: Anesthesia Postop Eval I: Assessment Summary Airway patent Yes 08/24/24 16:33 [email or web address] Spontaneous unlabored Yes 08/24/24 16:33 [email or web address] respirations Mental status nausea No 08/24/24 16:33 [email or web address] Vomiting No 08/24/24 16:33 [email or web address] Anesthesia Postop Eval I: Fluid Summary Crystalloid volume administer 1,600 08/24/24 16:33 [email or web address] (ml) Colloids volume administered ( ml) Blood Product volume administered (ml) Total IV fluid infused 1,600 08/24/24 16:33 [email or web address] Anesthesia Postop Eval I: Summary Notes Anesthesia Complication No 08/24/24 16:33 [email or web address] Anesthesia Complication Comment: Post-operative progress note Anesthesia: Postop Eval II Evaluation Mental status: Awake Pain Level: 2 nausea: No Vomiting: No
--- NOTE | 2024-08-24 17:16 | PCM.POSTANE2 ---
Anesthesia Postop Eval I Sum Postop Eval Completion status Anesthesia document: Postop Eval 1 completed: Yes Anesthesia Postop Eval I Summary Anesthesia Postop Eval I Summary: Anesthesia Postop Eval I: Assessment Summary Airway patent Yes 08/24/24 16:33 [email or web address] Spontaneous unlabored Yes 08/24/24 16:33 [email or web address] respirations Mental status nausea No 08/24/24 16:33 [email or web address] Vomiting No 08/24/24 16:33 [email or web address] Anesthesia Postop Eval I: Fluid Summary Crystalloid volume administer 1,600 08/24/24 16:33 [email or web address] (ml) Colloids volume administered ( ml) Blood Product volume administered (ml) Total IV fluid infused 1,600 08/24/24 16:33 [email or web address] Anesthesia Postop Eval I: Summary Notes Anesthesia Complication No 08/24/24 16:33 [email or web address] Anesthesia Complication Comment: Post-operative progress note Anesthesia: Postop Eval II Evaluation Mental status: Awake Pain Level: 2 nausea: No Vomiting: No
[2024-08-24] MEDS: traMADol 50 MG Tablet PO (17:49)
[2024-08-24] MEDS: Albuterol IH (6.7 GM) 1 PUFF INHALER 2 PUFF INHALATION (18:50)
== END 2024-08-24 19:11 | disposition home or self-care (01) ==
LOC: SDC 12:15 → AC 12:16
PROVIDERS: PCP Family Medicine; Referring Provider Orthopaedic Surgery Sports Medicine; Visit Provider Orthopaedic Surgery Sports Medicine
PROC: (CPT 29882; principal; 2024-08-24 13:40)
DX: S83.282A Other tear of lateral meniscus, current injury, left knee, initial encounter (principal); S83.512A Sprain of anterior cruciate ligament of left knee, initial encounter; K21.9 Gastro-esophageal reflux disease without esophagitis; J45.909 Unspecified asthma, uncomplicated; F17.290 Nicotine dependence, other tobacco product, uncomplicated; Z79.51 Long term (current) use of inhaled steroids; Z79.899 Other long term (current) drug therapy; X58.XXXA Exposure to other specified factors, initial encounter
CPT/HCPCS: 29882; 29888; 64447; 01400; C1713; J2405

== ENCOUNTER 2024-10-04 09:30 | Outpatient (RCR) | payer OTHER, SELFPAY ==
--- NOTE | 2024-08-30 14:56 | HP.PTEVAL ---
Patient's Visit Information Visit Information Visit Information: CHEYANNE ABRAMS is a 24 year old M referred to Physical Therapy by Dr. Saul Morales MD with a diagnosis of S83.282A - Other tear of lateral meniscus, current injury, left knee. Date of Evaluation: 08/30/24 Physical Therapist: Gurdeep Norton PT, Cert MDT, OCS Visit Plan Duration: Indefinite Plan: *left knee arthroscopy ACL reconstruction quadriceps tendon autograft and repair lateral meniscus on 08/24/24 at [facility]* *Patient to have brace locked in full extension with PWB LLE with gait* -okay to start ROM knee flex 0-[address] in 2weeks -See guidelines for ACL reconstruction with quadricep tendon autograft with meniscus repair precautions PT INTERVENTIONS -AROM SUPINE KNEE FLEXION 0-90 -MAT EXERCISES HIP/QUADS/HAMS - NMES NEEDED TO QUAD -PROGRESS WITH ROM PER MD ( MENISCUS REPAIR CONSIDERATION) -PROGRESS WITH WBAT PER MD ( MENSICUS REPAIR CONSIDERATION) -STRENGTHENING QUADS/HAMS/HIP ( MENISCUS REPAIR CONSIDERATION) PER GUIDELINES -PROPRIOCEPTION /BALANCE -FUNCTIONAL STRENGTHENING -VASO NEEDED FOR EDEMA Subjective Subjective: This 24 y/o male presents to physical therapy with left knee arthroscopy ACL reconstruction quadriceps tendon autograft and repair lateral meniscus on 08/24/24 at [facility]. Patient was d/c DOS with knee brace locked in extension and PWB LLE .Patient seen 08/29/24 cont with PWB LLE and knee locked extension for 2 weeks okay to start physical therapy gentle passive range of motion 0 to 90 degrees and follow-up in the office in 2 weeks time. Patient DOI 07/16/24 , injury jumped off back of truck caused immediate pain. 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 Patient has pain. Patient denies paresthesia/tingling .Patient has been icing. Patient was taking pain medication oxycodone which patient weaning. Patient lives in [place] 3 steps with rails . Lives on in basement 14 steps with rail. Patient scoots down steps on but. Patient condition affects QOL/job demands. Patient goals to return to work. Plan to see DR in 2 weeks. SOCIAL: single VOCATION: unemployed Pain Left Knee: Pain Intensity (Out of 10): 9 Pain Intensity Range: 10 Objective Objective: POSTURE: mild forward posture with crutches SKIN: bandage intact andrzej wrapped OBSERVATION: knee brace locked in extension GAIT: ambulated with knee brace locked in extension with PWB slow merlyn NEURO: denies paresthesia/tingling AROM: supine knee flexion 0-80 degrees QUAD SET: POOR MMT: (peak force) quads/hams/hip 0 Balance/Special Test Scores Lower Extremity Functional Score: 16 Goals Goal 1:: Patient to be I with HEP for ACL reconstruction and meniscus repair Goal Time Frame: 12-16 Weeks Goal 2:: Patient to improve AROM supine knee flexion 0-130 degrees to improve stairs Goal Time Frame: 12-16 Weeks Goal 3:: Patient to normalize gait pattern Goal Time Frame: 12-16 Weeks Goal 4:: Patient to improve peak force quads/hams/hip by 15-20 # strength to improve function Goal Time Frame: 12-16 Weeks Goal 5:: Patient to improve LFES score by 10-15 points to improve QOL Goal Time Frame: 12-16 Weeks Goal 6:: Patient to RTW with min limaitions Rehabilitation Potential Physical Therapy Diagnosis: This patient underwent s/p left knee arthroscopy ACL reconstruction quadriceps tendon autograft and repair lateral meniscus on 08/24/24 . Patient with knee brace locked in extension with PWB LLE . thus has impairments with decrease ROM ,weakness quads/hams ,balance and pain which impairs gait with WB restrictions and stairs thus recommend PT to return to prior level of function Rehabilitation Potential: Good Anticipated Interventions Text: Thank you for the opportunity to evaluate your patient. For Medicare and Medicare HMO plans, please review the plan of care and approve it. It will need to be FAXED BACK to us at [phone] for Medicare purposes. For Medicare only, by signing this I certify the plan of care. Please let me know if there are questions or concerns regarding this plan of care. Physician Signature: Date:
--- NOTE | 2025-01-23 16:39 | HP.PT.NRP ---
Patient Information Patient Information: CHEYANNE ABRAMS was seen in my office for initial evaluation on 08/30/24. The following Plan of Care was established for this patient: POC Established Initial Duration: Indefinite Last Seen Last Seen: This patient was last seen in our office . Pertinent comments regarding their Physical therapy will appear below: Patient seen for PT for meniscus repair surgery thus is /dc to HEP At this point I will be discontinuing this patient from physical therapy. I would be happy to see this patient again in the future if found appropriate by the physician. Thank you! Gurdeep Norton, PT, Cert MDT, OCS Balance/Gait/Functional tests Balance/Special Test Scores Lower Extremity Functional Score: 16
== END 2024-10-04 19:00 | disposition home or self-care (01) ==
LOC: PT 09:30
PROVIDERS: PCP Family Medicine; Referring Provider Orthopaedic Surgery Sports Medicine; Visit Provider Orthopaedic Surgery Sports Medicine
DX: S83.282D Other tear of lateral meniscus, current injury, left knee, subsequent encounter (principal); S83.512D Sprain of anterior cruciate ligament of left knee, subsequent encounter
CPT/HCPCS: 97110; 97162; 97530